=== PATIENT | male | born 1990 | race Caucasian/White ===

== ENCOUNTER 2023-01-19 15:25 | Emergency (ER) | payer SELFPAY ==
[2023-01-19 16:26] VITALS: BP 138/96; PULSE 60
[2023-01-19] MEDS ORDERED: Penicillin V Potassium 500 MG Tab PO STA (17:31)
[2023-01-19] MEDS ORDERED: Benzocaine 20% Topical Spray UD MUCMEM ONE (17:31)
[2023-01-19] MEDS ORDERED: Ketorolac 30 MG/ML SDV IM STA (17:31)
[2023-01-19] MEDS ORDERED: Acetaminophen/oxyCODONE 325-5 MG Tab PO ONE (17:33)
== END 2023-01-19 17:57 | disposition home or self-care (01) ==
LOC: MW.ED 15:25
DX: K08.89 Other specified disorders of teeth and supporting structures (principal); Z88.5 Allergy status to narcotic agent
CPT/HCPCS: 99282; A9270; 99283